=== PATIENT | male | born 1980 | race Caucasian/White ===

== ENCOUNTER 2017-06-25 18:20 | Emergency (ER) | payer BC ==
[2017-06-25 18:27] VITALS: BP 151/97; PULSE 97; TEMP 97.7; BMI 32.8
--- NOTE | 2017-06-25 18:27 | PDOC ---
Rapid Medical Evaluation Time Seen by Provider: 06/25/17 18:24 Medical Evaluation: Allergies Allergy/AdvReac Type Severity Reaction Status Date / Time No Known Allergies Allergy Verified 09/05/11 11:13 06/25/17 18:24 I have performed a brief in-person evaluation of this patient. The patient presents with a chief complaint of: R thumb lac tonight. Went to [facility] who sent pt to ED for possible tendon injury Pertinent physical exam findings:Dressing in place to R thumb I have ordered the following:nothing The patient will proceed to the ED for further evaluation.
--- NOTE | 2017-06-25 19:53 | PDOC ---
Attending Attestation - Resident Resident Name: Jonatan Parkinson - ED Attending Attestation I have performed the following: I have examined & evaluated the patient, The case was reviewed & discussed with the resident, I agree w/resident's findings & plan, Exceptions are as noted - HPI HPI: 06/25/17 21:05 Patient is a 37 year old male with no significant past medical history who presents to the ED s/p laceration on his right 1 first digit that occurred 2 hours before arrival. Patient reports using filing cabinet when his right thumb got caught in the mechanism causing laceration in the right first digit. Patient reports initial pain upon sustaining the laceration. Patient states last tetanus shot was one year ago. Patient reports that he is left hand dominant. Denies chest pain, SOB. Denies fever, chills. Denies nausea, vomiting. Denies any other symptoms. Allergies: None Social history: Former smoker (1 year). No alcohol. No illicit drugs. Surgical history: None PMD: None - Physicial Exam PE: 06/25/17 21:13 GENERAL: Awake, alert, and fully oriented, in no acute distress HEAD: No signs of trauma EYES: PERRLA, EOMI, sclera anicteric, conjunctiva clear ENT: Auricles normal inspection, hearing grossly normal, nares patent, oropharynx clear without exudates. Moist mucosa NECK: Normal ROM, supple, no lymphadenopathy, JVD, or masses LUNGS: Breath sounds equal, clear to auscultation bilaterally. No wheezes, and no crackles HEART: Regular rate and rhythm, normal S1 and S2, no murmurs, rubs or gallops ABDOMEN: Soft, nontender, normoactive bowel sounds. No guarding, no rebound. No masses EXTREMITIES: +3 cm semi circular laceration around the DIP of the first digit on right hand with flap from lac appearing slightly devitalized. +Full strength of right first digit. +Full proximal and distal extension and flexion of R first digit +Full opposition of right first digit. +Normal sensation of thumb distally, and on medial and lateral aspects however flap of laceration which is partially devitalized with slightly decreased sensation to light touch. . No clubbing or cyanosis. No cords, erythema, or tenderness NEUROLOGICAL: Normal speech, cranial nerves intact, negative pronator drift, 5/ 5 strength in all 4 extremities, normal sensation to light touch in all 4 extremities, normal cerebellar exam, normal reflexes and tone SKIN: Warm, Dry, normal turgor, no rashes or lesions noted. - Medical Decision Making 06/25/17 20:30 37yo M healthy presents with laceration to right first finger. Vitals are unremarkable. Tetanus is up-to-date. Right thumb is neurovascularly intact. Plan : -XR r/o FB or fracture -lac repair -dispo 06/25/17 21:13 -XR neg -lac repaired -splint placed -will give f/u ortho number for f/u -DC I discussed the physical exam findings, ancillary test results and final diagnoses with the patient. I answered all of the patient's questions. The patient was satisfied with the care received and felt comfortable with the discharge plan and treatment plan. The patient will call their primary care physician within 24 hours to arrange follow-up and will return to the Emergency Department with any new, persistent or worsening symptoms.
--- NOTE | 2017-06-25 21:30 | PDOC ---
History of Present Illness - General Chief Complaint: Laceration Stated Complaint: LACERATION Time Seen by Provider: 06/25/17 18:24 History Source: Patient Exam Limitations: No Limitations - History of Present Illness Initial Comments: 06/25/17 21:25 37m presents with 2.5 cm circular laceration to the right 1st digital phalanx and DIP after handling a metal file cabinet. Patient presented to Urgent Care but sent to our ED after they were concerned about more extensive injuries. Received tetanus shot 1 year ago. 06/25/17 21:44 Past History - Past Medical History Allergies/Adverse Reactions: Allergies Allergy/AdvReac Type Severity Reaction Status Date / Time No Known Allergies Allergy Verified 06/25/17 18:27 Home Medications: Ambulatory Orders NK [No Known Home Medication] 06/25/17 Anemia: No Asthma: No Cancer: No Cardiac Disorders: Yes (HEART MUMUR CHILD) CVA: No COPD: No CHF: No DVT: No Dementia: No Diabetes: No GI Disorders: No Disorders: No HTN: No Hypercholesterolemia: No Liver Disease: No Seizures: No Thyroid Disease: No - Surgical History Abdominal Surgery: No Appendectomy: No Cardiac Surgery: No Cholecystectomy: No Lung Surgery: No Neurologic Surgery: No Orthopedic Surgery: No - Suicide/Smoking/Psychosocial Hx Smoking History: Former smoker Have you smoked in the past 12 months: No Number of Cigarettes Smoked Daily: 15 If you are a former smoker, when did you quit?: 1 YR Information on smoking cessation initiated: No Hx Alcohol Use: No Drug/Substance Use Hx: No Substance Use Type: Alcohol Hx Substance Use Treatment: No Review of Systems - Review of Systems Able to Perform ROS?: Yes Is the patient limited Maori proficient: No Constitutional: No: Symptoms Reported HEENTM: No: Symptoms Reported Respiratory: No: Symptoms reported Cardiac (ROS): No: Symptoms Reported ABD/GI: No: Symptoms Reported : No: Symptoms Reported Musculoskeletal: No: Symptoms Reported Integumentary: Yes: See HPI Neurological: Yes: Numbness (some numbness over circular lacerated piece) *Physical Exam - Vital Signs Last Vital Signs Temp Pulse Resp BP Pulse Ox 97.7 F 97 H 20 151/97 98 06/25/17 18:22 06/25/17 18:22 06/25/17 18:22 06/25/17 18:22 06/25/17 18:22 - Physical Exam General Appearance: Yes: Nourished, Appropriately Dressed. No: Apparent Distress HEENT: positive: EOMI, CHUN, Normal ENT Inspection Neck: negative: Tender Respiratory/Chest: positive: Lungs Clear, Normal Breath Sounds. negative: Chest Tender Cardiovascular: positive: Regular Rhythm, Regular Rate, S1, S2 Gastrointestinal/Abdominal: positive: Normal Bowel Sounds, Flat, Soft. negative : Tender Extremity: positive: Normal Capillary Refill, Normal Range of Motion, Other ( 2.5 cm circular laceration over distal phalanx of right 1st digit) Procedures - Laceration/Wound Repair Right Distal Dorsal 1st digit Wound Length: to 2.5 cm Wound Explored: clean Wound's Depth, Shape: flap Irrigated w/ Saline: Yes Betadine Prep: Yes Anesthesia: 1% Lidocaine Amount of Anesthetic (ccs): 5 Wound Repaired With: Sutures Suture Size/Type: 6:0, 5:0, nylon Number of Sutures: 6 Sterile Dressing Applied: Yes (bacitracin) Splint Applied: Yes ED Treatment Course - RADIOLOGY Radiology Studies Ordered: Category Date Time Status FINGER(S) RIGHT [RAD] Stat Radiology 06/25/17 19:17 Completed Medical Decision Making - Medical Decision Making 06/25/17 21:52 xray negative for foreign objects. Laceration repaired with sutures, flap approximated to skin. Splint applied, bacitracin. Referal to Dr. Nelson. Suture removal in 10 days. *DC/Admit/Observation/Transfer Diagnosis at time of Disposition: Laceration of right thumb - Discharge Dispostion Disposition: HOME Admit: No - Referrals Referrals: Denton Nelson MD [Staff Physician] - - Patient Instructions Printed Discharge Instructions: DI for Laceration Repair Additional Instructions: Follow with Dr. Nelson, Orthopedics. Come back to ED in 10 days Come back to Ed for any new, worsening or concerning symptoms, if wound reopens or discharge from the wound. - Post Discharge Activity
== END 2017-06-25 21:44 | disposition home or self-care (01) ==
LOC: JER 18:20
PROC: 0HQFXZZ Repair Right Hand Skin, External Approach (ICD-10-PCS; principal; 2017-06-25)
DX: S61.011A Laceration without foreign body of right thumb without damage to nail, initial encounter (principal); W26.9XXA Contact with unspecified sharp object(s), initial encounter; Y93.89 Activity, other specified; Y92.9 Unspecified place or not applicable; Z87.891 Personal history of nicotine dependence
CPT/HCPCS: 73140-TC-RT; 99283-25